=== PATIENT | male | born 1940 | race Caucasian/White ===

== ENCOUNTER → 2017-02-22 | Outpatient (CLI) | payer OTHER | LOC: CAT 11:34 | DX: M19.012 Primary osteoarthritis, left shoulder (principal) ==

== ENCOUNTER 2017-03-23 05:35 | Inpatient (IN) | payer OTHER ==
[2017-03-15 14:22] LABS: URINE BLOOD NEGATIVE (Negative); URINE COLOR YELLOW; URINE GLUCOSE-RANDOM* NEGATIVE (Negative); URINE KETONES NEGATIVE (Negative); URINE PROTEIN (DIPSTICK) NEGATIVE (Negative); URINE UROBILINOGEN 0.2 E.U./dl (0.2-1.0)
[2017-03-15 14:25] LABS: ICTOTEST (BILI CONFIRMATORY) Negative (Negative); URINE BILIRUBIN NEGATIVE (Negative); URINE LEUKOCYTES-REFLEX TRACE (Negative)
[2017-03-15 14:43] LABS: HEMATOCRIT 40.7 % (42.0-52.0); MCH 18.8 pg (26.0-34.0); MCHC 31.8 g/dL (28.0-37.0); RBC 6.91 mil/uL (4.50-6.00); RDW 17.1 % (10.5-14.5); WBC 8.6 thou/uL (4.0-11.0)
[2017-03-15 14:47] LABS: CREATININE 0.9 mg/dL (0.7-1.3)
[2017-03-15 15:39] LABS: PROTIME 10.7 Seconds (9.3-11.4)
[~2017-03-23] VITALS: Ht 170.2 cm; Wt 93.4 kg
[2017-03-23] VITALS (8 sets, daily range): BP systolic 101–141; BP diastolic 57–84
--- NOTE | ~2017-03-23 | O ---
[facility] [place] [address] OPERATIVE REPORT Name: FELECIA CISNEROS Room #: 408-P ADM IN M.R.#: [id number] Admission: 03/23/17 Attend Phys: Arnaldo Smallwood Discharge: Date of : 38 Report #: [id number] THIS REPORT FOR: //name// CC: Arnaldo Madera DATE OF SERVICE: 03/23/2017 PREOPERATIVE DIAGNOSIS: Left shoulder pain, osteoarthritis, biceps tendinopathy, partial thickness tear of the rotator cuff. POSTOPERATIVE DIAGNOSIS: Left shoulder pain, osteoarthritis, biceps tendinopathy, partial thickness tear of the rotator cuff. PROCEDURE PERFORMED: Left open total shoulder arthroplasty with biceps tenodesis and debridement of partial thickness rotator cuff tear. SURGEON: Arnaldo Fan M.D. WASTE DUSTER: Jennifer Almazan PA-C. ANESTHESIA: General with preoperative indwelling interscalene block catheter. FLUIDS: 1000 mL crystalloid. ESTIMATED BLOOD LOSS: Approximately 100 mL. IMPLANTS UTILIZED: DePuy Global Unite proximal body and stem size 12, 48 x 18 eccentric humeral head, 44-mm anchor peg glenoid. DESCRIPTION OF PROCEDURE: After proper identification of the patient and operative site in preoperative holding area, the operative site was signed by myself. Prophylactic antibiotics given. The patient elected to receive an indwelling interscalene block catheter after reviewing the risks, benefits, alternatives and potential complications with anesthesia. After satisfactory block, the patient was brought back to the operative suite after induction of satisfactory general endotracheal anesthesia. The patient was carefully positioned on the operative bed, utilizing a beach chair positioner. The patient's head was carefully stabilized. He was elevated approximately 40 degrees. Left shoulder was sterilely prepped and draped in usual manner and final skin draping was with Ioban. A [employer] limb positioning system was utilized. Qualified historian research assistant was utilized throughout the entire procedure to aid in patient limb positioning, visualization and retraction of soft tissues and instrument passage, closure and sling application. [address] [address] OPERATIVE REPORT Name: FELECIA CISNEROS Room #: 408-[facility] IN ..#: [id number] Admission: 03/23/17 Attend Phys: Arnaldo Smallwood Discharge: Date of : 38 Report #: [id number] Anterior deltopectoral approach was planned. Skin was incised sharply. Full thickness skin flaps were developed. Deltopectoral interval and cephalic vein were identified. Cephalic vein was retracted laterally. Subdeltoid space was carefully opened bluntly. Brown retractor was used to retract the soft tissues. At this point, a portion of the upper border of the pectoralis major was carefully released, long head of biceps tendon was tenodesed to the undersurface of the pectoralis major tendon, which was repaired with #2 FiberWire. After satisfactory biceps tenodesis, the biceps was then followed proximally through the bicipital groove and rotator interval, which was then opened. Some spurring was appreciated in the bicipital groove. Anterior circumflex vessels were identified and ligated. These were then cauterized. A lesser tuberosity osteotomy was performed and this was carefully elevated off the humerus. Peripheral osteophytes were noted. There was complete loss of chondral surface and mild eburnation of the bone on humeral side. There appeared to be some partial thickness tearing of the articular side of the supraspinatus, but this still appeared to be amenable to regular total shoulder arthroplasty and I did not see any significant tears, one that required repair or so large that I thought that they were irreparable and reverse would be needed. The humeral head osteotomy was performed at approximately 20 degrees of retroversion, 135 degrees of neck-shaft angle. Humeral head was removed in its entirety. Peripheral osteophytes were then carefully removed, this was best approximated to a 44 x 18 humeral head to recreate the proximal humeral anatomy. Stem was reamed up to a size 12, which matched a preoperative templating, proximal body was then broached. The trial stem was implanted. A protection plate was threaded on this and then attention was divided to the glenoid surface. At this point, the anterior capsule was carefully divided from the subscapularis using a right angle, care was taken to identify and protect the axillary nerve throughout the entire procedure. Capsule was carefully excised. An anterior Bankart retractor was then placed and the remaining biceps tendon and labrum were circumferentially removed. There was excellent visualization of the glenoid, a 44-mm glenoid provided the best overall fit, 48 appeared to peripheral soft tissue removed, 44 mm guidepin guide was then utilized, guide pin was inserted into the central aspect of the glenoid vault, it was well seated, position was verified with the anterior Bankart retractor removed. At this point, glenoid face was carefully reamed to accommodate the 44 mm trial. Any remaining peripheral soft tissue was then carefully released, step drill was utilized, bone was safe from this and then the multipin guide was carefully impacted into position and the peripheral pegs were drilled. Derotation pegs were inserted and this was done for all 3 pegs. This was removed, glenoid was thoroughly irrigated with normal saline. All drill holes were contained. Bone graft was applied to the 44 mm glenoid after a trial had been fully seated and well positioned. This was removed. FloSeal was injected into the drill holes and cement was prepared on the back table and placed in a Tuohy syringe. Glenoid was irrigated. FloSeal was irrigated and suctioned out, this dried and then the cement was injected and pressurized into the peripheral holes. [facility] [address] [place] [address] OPERATIVE REPORT Name: ROSALIO CISNEROSJUAN Ricardo Room #: 408-P [facility] IN [place].#: [id number] Admission: 03/23/17 Attend Phys: Arnaldo Smallwood Discharge: Date of : 38 Report #: [id number] implant which had bone graft on the central peg was carefully impacted into position, it was fully seated and held into position until the cement had fully cured. It was fully seated and stable. This was then protected with plastic was divided to the humerus. A 48 x 15 head on the stem provided the best overall recreation of the proximal humeral anatomy and had approximately 50% translation posteriorly and nicely restored the anatomy. This was removed. The Global Unite brosteotome was then carefully inserted. Anterior drill holes were placed through the bicipital groove around the lesser tuberosity. Four #2 FiberWires were utilized for the subscapularis repair. The stem was assembled, proximal body was then tightened to the stem, this was impacted into position and was well seated. The inferior 2 sutures from the lesser tuberosity were wrapped around the stem. Next, the proximal area superior to the prosthesis was carefully bone grafted. The head was then impacted its position. This was then eccentric head with care taken to place the eccentricity more posterior and superior for full coverage of the humerus. This was well seated, reduced. Again, had good anterior, posterior stability. The joint was thoroughly irrigated with normal saline. Lesser tuberosity was repaired with modified Hua-Basim technique with four #2 FiberWires. The lateral portion of the rotator interval was repaired with #2 FiberWire. As noted early, there was some mild articular-sided fraying of the supraspinatus, which was just carefully debrided sharply. This did not uncover any significant portion of the footprint and did not appear to be in need of repair. 1 gram of vancomycin powder was placed deep. Deltopectoral interval was closed with 0 Vicryl. The other half of the 1 gram of vancomycin powder was then placed superficially. 2-0 Vicryl was used to close the subcutaneous tissues followed by running Monocryl subcuticular stitch. This was then sealed with Dermabond. Sterile dressing was applied. The patient will be immobilized in a sling and abduction pillow for 4 weeks postoperatively. By: [id number] Arnaldo Fan MD /esperanza
--- NOTE | ~2017-03-23 | EKG ---
[place] [address] [facility] [place] [address] ELECTROCARDIOGRAM REPORT Name: FELECIA CISNREOS [id number] Admission: Attend Phys: Arnaldo Smallwood Discharge: Date of : 38 Report #: [id number] THIS REPORT FOR: //name// [facility] Test Date: 2017-03-15 Test Time: 14:11:46 Pat Name: FELECIA CISNEROS Department: Room: Gender: Gyro Mechanic: Ye SHOOK : 1940 Requested By: Arnaldo Fan Order Number: [id number] MD: Flakito Arias Measurements Intervals Erin Rate: 77 P: 52 CO: 154 QRS: -28 QRSD: 155 T: -21 QT: 413 QTc: 468 Interpretive Statements Sinus rhythm Ventricular premature complex Right bundle branch block Inferior infarct, age indeterminate No previous ECG available for comparison Electronically Signed On 03-16-2017 8:22:16 CDT by Flaktio Arias [email or web address] <ELECTRONICALLY SIGNED> By: Flakito Arias MD, [facility] 03/16/17 0822 1411 1411 Flakito Arias MD, FACC /EPI
[~2017-03-23 05:35] MED LIST: ASPIR 8181 MG PO; FISH OIL 1,2001 EAC4 PO; FLOMAX0.4 MG PO; HYDROCHLOROTH12.5 M1 PO; LISINOPRIL10 MG PO; PROBIOTIC1 EAC2 PO; PROSCAR 5MG TABL5 MG PO; VITAMIN B-12500 MCG PO; VITAMIN D31000 UNIT PO
[2017-03-24 04:56] VITALS: BP 119/67
[2017-03-24 06:05] LABS: HEMATOCRIT 37.8 % (42.0-52.0); HEMOGLOBIN 11.6 gm/dL (14.0-18.0)
[2017-03-24 06:08] LABS: POTASSIUM 4.2 mmol/L (3.5-5.1)
[2017-03-24 08:00] VITALS: BP 133/96
[2017-03-24 12:13] VITALS: BP 133/96
[2017-03-24 12:31] LABS: URINE BILIRUBIN NEGATIVE (Negative); URINE BLOOD NEGATIVE (Negative); URINE COLOR YELLOW; URINE GLUCOSE-RANDOM* NEGATIVE (Negative); URINE KETONES NEGATIVE (Negative); URINE LEUKOCYTES-REFLEX NEGATIVE (Negative); URINE PROTEIN (DIPSTICK) NEGATIVE (Negative); URINE UROBILINOGEN 0.2 E.U./dl (0.2-1.0)
== END 2017-03-24 19:00 | disposition home health service (06) | DRG 483 ==
LOC: 4N 05:35 → TBA 05:35 → PRE 05:48 → 4N 11:18 → PRE 13:46 → ENTRNSPT 03-24 18:56 → 4N 03-24 19:00
PROVIDERS: Orthopaedic Surgery Sports Medicine; Physician Assistant Surgical
PROC: 0RRK0JZ Replacement of Left Shoulder Joint with Synthetic Substitute, Open Approach (ICD-10-PCS; principal; 2017-03-23)
PROC: 0LS40ZZ Reposition Left Upper Arm Tendon, Open Approach (ICD-10-PCS; 2017-03-23)
DX: M19.012 Primary osteoarthritis, left shoulder (principal); N40.1 Benign prostatic hyperplasia with lower urinary tract symptoms; M75.102 Unspecified rotator cuff tear or rupture of left shoulder, not specified as traumatic; M75.22 Bicipital tendinitis, left shoulder; R33.8 Other retention of urine
CPT/HCPCS: 10790; 50010; 50101; 50172; 50386; 50417; 50697; 50733; 50935; 51320; 51751; 51771; 52001; 52138; 52282; 53000; 53078; 54118; 55435; 56521; 56524; 56525; 56526; 56530; 57095; 62110; 62900; 64042; 64043; 70005

== ENCOUNTER 2017-03-26 10:12 | Emergency (ER) | payer OTHER ==
[~2017-03-26] VITALS: Ht 170.2 cm; Wt 83.9 kg
[2017-03-26 11:36] LABS: URINE BILIRUBIN NEGATIVE (Negative); URINE BLOOD 3+ (Negative); URINE COLOR YELLOW; URINE GLUCOSE-RANDOM* NEGATIVE (Negative); URINE KETONES NEGATIVE (Negative); URINE PROTEIN (DIPSTICK) TRACE (Negative); URINE UROBILINOGEN 0.2 E.U./dl (0.2-1.0)
[2017-03-26 11:39] LABS: URINE LEUKOCYTES-REFLEX 1+ (Negative)
[2017-03-26 11:51] LABS: CASTS None Seen /LPF (None Seen); CRYSTALS None Seen /LPF (None Seen); SQUAMOUS None Seen /LPF (0-3); URINE RBC >20 Many /HPF (0-2); URINE WBC-REFLEX 6-15 Few /HPF (0-5)
[2017-03-26] MEDS ORDERED: KEFLEX500 MG PO (14:58)
[2017-03-26] MEDS ORDERED: POLYETHYLENE GL17 GM PO (14:58)
[2017-03-26] MEDS ORDERED: BISACODYL SUPP10 MG RECTAL (14:58)
== END 2017-03-26 15:55 | disposition home or self-care (01) ==
LOC: ER 10:12
PROVIDERS: Physician Assistant
DX: K59.00 Constipation, unspecified (principal); R33.9 Retention of urine, unspecified; N39.0 Urinary tract infection, site not specified; I10 Essential (primary) hypertension